=== PATIENT | female | born 2000 | race Caucasian/White ===

== ENCOUNTER 2024-11-08 04:40 | Emergency (ER) | payer BC ==
--- OUTSIDE RECORDS SUMMARY | 2024-11-08 04:43 | XMS REPORT | Continuity of Care Document ---
Author Name Unknown Address [address] [facility]. [address] [place] [address] [facility] thconnect Address [address] [facility]. [address] [place] [address] Care Team Providers Care [employer] Name Role Phone Tiffany Olsen Primary Care Physician Tiffany Olsen Attending Clinician Unavailable ROMAN CHANG Attending Clinician ROMAN Holt Attending Clinician Roman Holt MD Attending Clinician [phone] Doctor Unassigned, Aneth Attending Clinician U navailrocky 2, [facility] Attending Clinician Unavailable Payers Payer Name Policy Type Policy Number Effective Date Expirati on Date Source [facility] 6 [id number] [facility] Problems Condition Name Condition Details Condition Category Status Onset Date Resolution Date Last Treatment Date Treating Clinician Comments Source [id number] Body mass index [BMI] 32.0-32.9, adult Problem [facility] [id number] Other obesity due to excess calories Problem [facility] [id number] PCOS (polycysti c ovarian syndrome) Problem [facility] Allergies, Adverse Reactions, Alerts Allergy Name Allergy Type Status Severity Reaction(s) Onset Date Inactive Date Treating Clinician Comments Source Luna nAg ty to adverse reaction s Active Anaphylaxis 2023-11 0-14 00:00: 00 [facility] PLUM DRUG INGREDI Active Anaphylaxis 2023-11 00:00: 00 [facility] NO KNOWN ALLERGIE S Drug Class Active [facility] Social History Social Habit Start Date Stop Date Quantity Comments Source [facility] of [facility] Alcoholic beverage intake 2024-09-29 00:00:00 2024-09-29 00:00:00 Ex-drinker (finding) [facility] Tobacco use and exposure 2024-08-24 00:00:00 2024-08-24 00:00:00 Smokeless tobacco non-user [facility] History of Social function 2024-08-24 00:00:00 2024-08-24 00:00:00 [facility] Alcohol Comment 2024-08-24 00:00:00 2024-08-24 00:00:00 socially [facility] Sex assigned at 2001 00:00:00 2000 00:00:00 [facility] Smoking Status Start Date Stop Date Source Never smoked tobacco [facility] Medications Ordered Medication Name Filled Medication Name Start Date Stop Date Current Medication? 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 [facility] spironolact one 50 mg tablet 2023-11 00:00: 00 10-26 00:00 :00 No [id number] 50mg Take 1 tablet by mouth in the morning. [facility] miSOPROStoL 200 mcg tablet 2023-11 00:00: 00 09-29 00:00 :00 No [id number] Take one tablet the night before IUD insertion procedure and take one tablet the morning of the IUD insertion procedure. This is not for abortive treatment; patient will have IUD insertion. [facility] metFORMIN HCl ER 500 MG metFORMIN HCl ER 500 MG 05-22 00:00: 00 No 1{table t_with_ evening _meal} QD metFORMIN HCl ER 500 MG Tylenol 325 MG Tylenol 325 MG No 1{table t_as_ne eded} 6xD Tylenol 325 MG Vital Signs Vital Name Observation Time Observation Value Comments S ource Systolic blood pressure 2024-09-29 15:19:00 128 mm[Hg] [facility] Diastolic blood pressure 2024-09-29 15:19:00 88 mm[Hg] [facility] Heart rate 2024-09-29 15:19:00 92 /min [facility] Respiratory rate 2024-09-29 15:19:00 18 /min [facility] Body height 2024-09-29 15:19:00 165.1 cm [facility] Body weight 2024-09-29 15:19:00 88.905 kg [facility] BMI 2024-09-29 15:19:00 32.62 kg/m2 [facility] Systolic blood pressure 2024-09-28 19:47:00 118 mm[Hg] [facility] Diastolic blood pressure 2024-09-28 19:47:00 81 mm[Hg] [facility] Heart rate 2024-09-28 19:47:00 92 /min [facility] Body temperature 2024-09-28 19:47:00 36.72 [place] [facility] Respiratory rate 2024-09-28 19:47:00 18 /min [facility] Body height 2024-09-28 19:47:00 165.1 cm [facility] Body weight 2024-09-28 19:47:00 88.996 kg [facility] BMI 2024-09-28 19:47:00 32.65 kg/m2 [facility] Systolic blood pressure 2024-08-31 15:41:00 128 mm[Hg] [facility] Diastolic blood pressure 2024-08-31 15:41:00 85 mm[Hg] [facility] Heart rate 2024-08-31 15:41:00 108 /min [facility] Body temperature 2024-08-31 15:41:00 36.17 [place] [facility] Respiratory rate 2024-08-31 15:41:00 18 /min [facility] Body height 2024-08-31 15:41:00 165.1 cm [facility] Body weight 2024-08-31 15:41:00 88.996 kg [facility] BMI 2024-08-31 15:41:00 32.65 kg/m2 [facility] Systolic blood pressure 2024-08-24 18:30:00 124 mm[Hg] [place] [facility] Diastolic blood pressure 2024-08-24 18:30:00 81 mm[Hg] [facility] Heart rate 2024-08-24 18:30:00 104 /min [facility] Body temperature 2024-08-24 18:30:00 36.5 [place] [facility] Respiratory rate 2024-08-24 18:30:00 18 /min [facility] Body height 2024-08-24 18:30:00 165.1 cm [facility] Body weight 2024-08-24 18:30:00 91.173 kg [facility] BMI 2024-08-24 18:30:00 33.45 kg/m2 [facility] height 2024-05-22 10:20:00 65.00 [in_i] Com [facility] weight 2024-05-22 10:20:00 200.0 [lb_av] Co [facility] temperature 2024-05-22 10:20:00 97.9 [degF] Com [facility] bmi 2024-05-22 10:20:00 33.28 kg/m2 Comm on [facility] oximetry 2024-05-22 10:20:00 99 % Commo n [facility] respiratory rate 2024-05-22 10:20:00 16 /min [facility] blood pressure systolic 2024-05-22 10:20:00 137 mm[Hg] Common [facility] blood pressure diastolic 2024-05-22 10:20:00 82 mm[Hg] [facility] height 2023-11-22 10:40:00 65.00 [in_i] Com [facility] weight 2023-11-22 10:40:00 193.0 [lb_av] Co [facility] temperature 2023-11-22 10:40:00 98.1 [degF] Com [facility] bmi 2023-11-22 10:40:00 32.11 kg/m2 Comm on [facility] oximetry 2023-11-22 10:40:00 95 % Commo n [facility] respiratory rate 2023-11-22 10:40:00 15 /min [facility] blood pressure systolic 2023-11-22 10:40:00 121 mm[Hg] [facility] blood pressure diastolic 2023-11-22 10:40:00 74 mm[Hg] [facility] height 2023-05-22 09:40:00 65.00 [in_i] Com [facility] weight 2023-05-22 09:40:00 193.0 [lb_av] Co [facility] temperature 2023-05-22 09:40:00 97.7 [degF] Com mon [facility] bmi 2023-05-22 09:40:00 32.11 kg/m2 Comm on [facility] oximetry 2023-05-22 09:40:00 95 % Commo n [facility] respiratory rate 2023-05-22 09:40:00 15 /min Common [facility] blood pressure systolic 2023-05-22 09:40:00 120 mm[Hg] Common [facility] blood pressure diastolic 2023-05-22 09:40:00 74 mm[Hg] [facility] height 2023-05-08 09:00:00 65.00 [in_i] Com [facility] weight 2023-05-08 09:00:00 193.0 [lb_av] Co mmon [facility] temperature 2023-05-08 09:00:00 97.4 [degF] Com mon [facility] bmi 2023-05-08 09:00:00 32.11 kg/m2 Comm on [facility] oximetry 2023-05-08 09:00:00 95 % Commo n [facility] respiratory rate 2023-05-08 09:00:00 16 /min [facility] blood pressure systolic 2023-05-08 09:00:00 138 mm[Hg] [facility] blood pressure diastolic 2023-05-08 09:00:00 86 mm[Hg] [facility] Procedures Procedure Date / Time Performed Performing Clinicia n Source POCT TEST 2024-09-29 00:00:00 Christiano Roman [facility] POCT TEST 2024-08-31 00:00:00 Christiano [facility] Encounters Start Date/Time End Date/Time Encounter Type Admission Type Attending Clinicians Care Facility Care Department Encounter ID Source 2023-05-21 11:22:00 Outpatient Tiffany Olsen [facility] [id number] [facility] 2023-05-08 08:13:01 Outpatient Tiffany Olsen [facility] [id number] [facility] 2024-10-24 00:00:00 2024-10-26 15:23:54 [facility] [id number] 350.1.13.10 4.2.7.2.686 [id number] 134 [id number] [facility] 2024-09-29 09:30:00 2024-09-29 10:00:00 Office Visit Virk-Mahogany sLizetteRoman [facility] 1..840.114 350.1.13.10 4.2.7.2.686 [id number] 134 [id number] [facility] 2024-09-29 09:30:00 2024-09-29 09:30:00 Outpatient R VIRK-MAHOGANY S, ROMAN [id number] 2024-09-29 08:00:00 2024-09-29 08:00:00 Outpatient R VIRK-MAHOGANY S, ROMAN VIRK-MAHOGANY S, ROMAN [facility] [id number] [facility] 2024-09-28 14:00:00 2024-09-28 14:26:04 Outpatient R VIRK-MAHOGANY S, ROMAN [facility] [id number] [facility] 2024-09-28 14:00:00 2024-09-28 14:26:04 Office Visit Virk-Mahogany s, Roman [facility] [id number] 350.1.13.10 4.2.7.2.686 [id number] 134 [id number] [facility] 2024-08-25 00:00:00 2024-09-26 18:21:33 Patient Secure Msg Doctor Unassigned, Aneth Doctor Unassigned, Aneth [facility] 1.2.840.114 350.1.13.10 4.2.7.2.686 [id number] 134 [id number] [facility] 2024-09-15 00:00:00 2024-09-15 13:48:13 Refill Virk-Mahogany s, Roman [facility] 1.2.840.114 350.1.13.10 4.2.7.2.686 [id number] [facility] 2024-08-31 10:30:00 2024-08-31 11:00:00 Office Visit Virk-Mahogany s Roman [facility] 1.2.840.114 350.1.13.10 4.2.7.2.686 [id number] [facility] 2024-08-31 10:30:00 2024-08-31 10:30:00 Outpatient R VIRK-MAHOGANY S, ROMAN VIRK-MAHOGANY S, ROMAN [facility] [id number] [facility] 2024-08-24 14:00:00 2024-08-24 14:33:30 Outpatient R VIRK-MAHOGANY S, ROMAN VIRK-MAHOGANY S, ROMAN [facility] [id number] [facility] 2024-08-24 14:00:00 2024-08-24 14:15:00 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 2, Ad[facility] Lab Virk-Mahogany sLizetteRoman 2, Adc Lab [facility] 1.2.840.114 350.1.13.10 4.2.7.2.686 [id number] [facility] 2024-08-24 13:30:2024-08-24 13:54:32 Office Visit Roman Lindsay [facility] 1.2.840.114 350.1.13.10 4.2.7.2.686 [id number] [facility] 2024-05-22 00:00:00 2024-05-22 00:00:00 OFFICE VISIT ESTAB PT LEVEL 3 STLMLC STLMLC [id number] [facility] 2023-11-22 00:00:00 2023-11-22 00:00:00 (WELLNESS) Wellness Visit STLMLC STLMLC [id number] [facility] 2023-05-22 00:00:00 2023-05-22 00:00:00 OFFICE VISIT ESTAB PT LEVEL 3 STLMLC STLMLC [id number] [facility] 2023-05-08 00:00:00 2023-05-08 00:00:00 OFFICE VISIT NEW PT LEVEL 3 STLMLC STLMLC [id number] [facility] Results Test Description Test Time Test Comments Results Result Co mments Source [facility] [id number] 15:44:00* Test Item Value Reference Range Interpretation Comme nts POCT PREG (test code = 1605) Negative On board controls acceptable with C Line (test code = 3574) Yes POCT PREG LOT # (test code = 3575) POCT PREG TEST DATE ( test code = 3576) [facility]/AUTO [id number] 00:00:00* Test Item Value Reference Range Interpretation Comme nts NUCLEATED RBCS (test code = 13364-8) 0.0 /100 WBC'S See_Comment [Automated messa ge] The system which generated this result transmitted reference range: 0.0 /100 WBC'S. The reference range was not used to interpret this result as normal/abnormal. ABSOLUTE EOSINOPHILS (test code = 43089-2) 0.14 K/UL See_Comment [Automated messa ge] The system which generated this result transmitted reference range: 0.00-0.50 K/UL. The reference range was not used to interpret this result as normal/abnormal. ABSOLUTE LYMPHOCYTES (test code = 43824-9) 2.53 K/UL See_Comment [Automated messa ge] The system which generated this result transmitted reference range: 1.00-4.00 K/UL. The reference range was not used to interpret this result as normal/abnormal. ABSOLUTE MONOCYTES (test code = 11779-7) 0.51 K/UL See_Comment [Automated messa ge] The system which generated this result transmitted reference range: 0.2-3.8 K/UL. The reference range was not used to interpret this result as normal/abnormal. ABSOLUTE NEUTROPHILS (test code = 26412-6) 4.05 K/UL See_Comment [Automated messa ge] The system which generated this result transmitted reference range: 1.50-7.50 K/UL. The reference range was not used to interpret this result as normal/abnormal. BASOPHILS (test code = 53675-7) 0.5 % EOSINOPHILS (test code = 73165-4) 1.9 % HEMATOCRIT (test code = 23310-5) 41.5 % See_Comment [Automated messa ge] The system which generated this result transmitted reference range: 34.0-45.0 %. The reference range was not used to interpret this result as normal/abnormal. HEMOGLOBIN (test code = 718-7) 14.2 G/DL See_Comment [Automated messa ge] The system which generated this result transmitted reference range: 11.5-15.5 G/DL. The reference range was not used to interpret this result as normal/abnormal. LYMPHOCYTES (test code = 72492-9) 34.8 % MCH (test code = 98239-7) 31.8 PG See_Comment [Automated messa ge] The system which generated this result transmitted reference range: 25.0-33.0 PG. The reference range was not used to interpret this result as normal/abnormal. MCHC (test code = 61355-3) 34.2 G/DL See_Comment [Automated messa ge] The system which generated this result transmitted reference range: 31.0-36.0 G/DL. The reference range was not used to interpret this result as normal/abnormal. MCV (test code = 96253-8) 93.0 fL See_Comment [Automated messa ge] The system which generated this result transmitted reference range: 80.0-99.0 fL. The reference range was not used to interpret this result as normal/abnormal. MONOCYTES (test code = 37377-2) 7.0 % NEUTROPHILS (test code = 11065-5) 55.7 % PLATELET COUNT (test code = 56243-3) 264 K/UL See_Comment [Automated [employer]] The system which generated this result transmitted reference range: 130-400 K/UL. The reference range was not used to interpret this result as normal/abnormal. RBC (test code = 81913-9) 4.46 M/UL See_Comment [[employer]ated [employer]] The system which generated this result transmitted reference range: 3.80-5.40 M/UL. The reference range was not used to interpret this result as normal/abnormal. RDW (test code = 52851-8) 12.1 % See_Comment [[employer]ated [employer]] The system which generated this result transmitted reference range: 11.5-15.0 %. The reference range was not used to interpret this result as normal/abnormal. WBC (test code = 15233-4) 7.3 K/UL See_Comment [[employer]ated [employer]] The system which generated this result transmitted reference range: 3.5-11.0 K/UL. The reference range was not used to interpret this result as normal/abnormal.
[2024-11-08] MEDS ORDERED: ONDANSETRON 4 MG/2 ML VIAL ONE (05:50)
[2024-11-08] MEDS ORDERED: MORPHINE 4 MG/ML SYR ONE (05:50)
[2024-11-08] MEDS ORDERED: NA CHLORIDE 0.9% 1,000 ML ONE (05:50)
[2024-11-08 06:06] LABS: Specific Gravity 1.026 (1.005-1.030)
[2024-11-08 06:07] LABS: Specific Gravity 1.026 (1.005-1.030); Sqamous Epithelial <5 /HPF (None Seen); Transitional Epithelial <5 /HPF (None Seen); Urine Bacteria None Seen /HPF (<20); Urine Bilirubin NEGATIVE (Negative); Urine Blood 1+ (Negative); Urine Clarity Clear (Clear); Urine Color Light-Yellow (Yellow); Urine Culture Reflex Order NOT NEEDED; Urine Glucose NEGATIVE (Negative); Urine Ketones NEGATIVE (Negative); Urine Microscopic Reflex YN ORDER UMIC; Urine Mucus Slight /HPF (None Seen); Urine Nitrite NEGATIVE (Negative); Urine Protein NEGATIVE (Negative); Urine Urobilinogen Normal (Normal); Urine WBC <5 /HPF (<5)
[2024-11-08 06:10] LABS: Absolute Eosinophils 0.2 K/uL (0-0.5); Absolute Lymphocytes (CBC) 3.2 K/uL (0.7-4.9); Absolute Monocytes 0.7 K/uL (0.1-1.3); Absolute Neutrophil 4.7 K/uL (1.8-8.0); Basophils % 0.5 % (0-1.3); Eosinophils % 2.2 % (0-4.4); Hematocrit 36.4 % (36.0-45.0); Hemoglobin 12.2 g/dL (12.0-15.0); Lymphocytes % 36.5 % (15.3-44.8); MCH 31.1 pg (27.0-35.0); MCHC 33.5 g/dL (32.0-36.0); MPV 9.9 fL (7.6-11.3); Monocytes % 7.5 % (3.3-12.3); Neutrophils % 53.3 % (41.7-73.7); Nucleated Red Blood Cells % 0.1 % (0-0); Platelets 248 thou/uL (152-406); RBC Red Blood Cell Count 3.92 M/uL (3.86-4.86); Red Cell Distribution Width 13.3 % (12.1-15.2)
[2024-11-08 06:29] LABS: Albumin 3.8 g/dL (3.4-5.0); Albumin/Globulin Ratio 1.1 (1.1-1.8); Anion Gap 11.4 mEq/L (5.0-15.0); Bilirubin Total 0.4 mg/dL (0.2-1.0); Globulin 3.5 g/dL (2.3-3.5); Potassium 3.4 mEq/L (3.5-5.1); Protein, Total 7.3 g/dL (6.4-8.2)
--- NOTE | 2024-11-08 07:01 | RAD REPORT ---
EXAMINATION: CT ABDOMEN AND PELVIS WITH CONTRAST CLINICAL INDICATION: Female, 23 years old.r sided abd pain TECHNIQUE: CT abdomen and pelvis was performed, after the administration of IV contrast, as per [facility]. Axial, sagittal and coronal reconstructions were obtained. One or more of the following dose reduction techniques were used: Automated exposure control, adjustment of the mA and/o r kV according to patient size, and/or iterative reconstruction. Unless otherwise specified, incidental findings do not require dedicated imaging follow-up. [id number]. COMPARISON: No prior exam. LOWER CHEST: No acute process identified.No significant pericardial effusion. Mild circumferential th ickening of the distal esophagus which could reflect esophagitis. UPPER GI: No significant abnormality. LIVER: Hepatic steatosis, but otherwise unremarkable. GALLBLADDER/BILE DUCTS: No biliary ductal dilatation.? PANCREAS: No mass, ductal dilation, or dustin-pancreatic fluid. SPLEEN: Unremarkable. ADRENALS: No adrenal masses. KIDNEYS AND URETERS: Normal size and contour. No hydronephrosis.Low density and/or too small to candy cterize renal lesions which are statistically benign. ABDOMINAL AORTA AND OTHER VESSELS: Normal caliber aorta and IVC. PERITONEUM: No abnormal free fluid. No free air. LYMPH NODES: No pathologic lymphadenopathy. ABDOMINAL WALL: No significant abnormality. SMALL BOWEL/COLON: Small bowel has normal course and caliber. No colonic wall thickening or pericolon ic inflammatory changes.Normal appendix. Moderate colonic stool. URINARY BLADDER: Underdistended but grossly unremarkable. REPRODUCTIVE ORGANS: No pathologic process. MUSCULOSKELETAL: No acute or suspicious osseous abnormality. ADDITIONAL FINDINGS: None. IMPRESSION: No acute or significant abnormalities seen in the abdomen or pelvis. Normal appendix. Possible mild c onstipation.
--- NOTE | 2024-11-08 07:07 | EDPHYS ---
Physician Documentation [facility] Name: Daxa Singleton Age: 23 yrs Sex: Female : 2000 Arrival Date: 11/08/2024 Time: 04:40 Bed 5 Private MD: ED Physician Paulo Zimmerman HPI: 11/08 05:00 This 23 yrs old Female presents to ER via Unassigned with complaints of ec2 Abdominal Pain. 05:00 Patient arrives today for right-sided abdominal pain. Reports intermittent symptoms ec2 ongoing for the last several weeks however worsened symptoms tonight. Reports associated nausea. No vomiting. No diarrhea. No urinary complaint. Patient reports otherwise no cough and cold symptoms. No previous abdominal surgeries.. 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 - Infectious Disease History:: Denies. - Social history:: Smoking status: Patient denies any tobacco usage or history of. ROS: 05:00 Constitutional: as per hpi ec2 Exam: 05:00 Constitutional: GEN: NAD Head: atraumatic Eyes: EOMI Ears: External ears are ec2 normal. CV: Tachycardia LUNGS: no respiratory distress ABD: non-distended, soft, tender in the right lower quadrant, no guarding, not rigid SKIN: no evidence of rashes MSK: no evidence of trauma Vital Signs: 05:28 BP 142 / 98; Pulse 114; Resp 17; Temp 98.6; Pulse Ox 100% ; Weight 87.54 kg; Height 5 vc1 ft. 5 in. ; Pain 4/10; 06:11 BP 131 / 84; Pulse 95; Resp 16; Pulse Ox 97% on R/A; dd2 06:42 BP 130 / 76; Pulse 92 MON; Resp 16; Pulse Ox 97% on R/A; dd2 05:28 Body Mass Index 32.12 (87.54 kg, 165.1 cm) vc1 05:28 Pain Scale: Adult vc1 [place] Coma Score: 05:45 Eye Response: spontaneous(4). Motor Response: obeys commands(6). Verbal Response: dd2 oriented(5). Total: 15. MDM: 05:00 Medical Screening Exam initiated ec2 05:00 Data reviewed: vital signs, nurses notes. ED course: Patient arrives today for ec2 right-sided abdominal pain. Examination yields abdominal findings as above. Will obtain lab work, CT imaging. . 07:05 ED course: CT abdomen pelvis is nonacute. On reassessment patient is well-appearing no ec2 acute distress. Will discharge home. Return precautions given.. 11/08 05:00 Order name: CBC with Diff; Complete Time: 06:31 ec2 11/08 05:00 Order name: CMP; Complete Time: 06:31 ec2 11/08 05:00 Order name: Lipase; Complete Time: 06:31 ec2 11/08 05:00 Order name: Test, Urine; Complete Time: 06:08 ec2 11/08 05:00 Order name: Urinalysis w/ reflexes; Complete Time: 06:08 ec2 11/08 05:00 Order name: CT Abd/Pelvis - IV Contrast Only; Complete Time: 07:04 ec2 11/08 05:00 Order name: IV Saline Lock; Complete Time: 05:19 ec2 11/08 05:00 Order name: Labs collected and sent; Complete Time: 05:19 ec2 11/08 05:41 Order name: Misc. Order: recollect all labs; Complete Time: 05:51 vk Administered Medications: 05:56 Drug: NS 0.9% IV 1000 ml IV at 1 bolus Per protocol; to be given as a bolus over 60 dd2 minutes Route: IV; Rate: 1 bolus; Site: left antecubital; 06:11 Follow up: Response: No adverse reaction dd2 07:16 Follow up: IV Status: Completed infusion iw 05:57 Drug: Ondansetron IVP 4 mg IVP once; over 2 minutes Route: IVP; Site: left antecubital; dd2 06:12 Follow up: Response: No adverse reaction dd2 05:57 Drug: morphine IVP or IV 4 mg IVP once over 4 mins Route: IVP; Infused Over: 4 mins; dd2 Site: left antecubital; 06:12 Follow up: Response: No adverse reaction dd2 Disposition Summary: 11/08/24 07:07 Discharge Ordered Notes: Location: Home ec2 Condition: Stable ec2 Diagnosis - Lower abdominal pain, unspecified ec2 Followup: ec2 - With: Private Physician - When: - Reason: Re-evaluation by your physician Discharge Instructions: - Discharge Summary Sheet ec2 - Abdominal Pain, Adult ec2 Forms: - Work release form eb - Medication Reconciliation Form ec2 - Antibiotic Education ec2 - Prescription Opioid Use ec2 - Patient Portal Instructions ec2 - Leadership Thank You Letter ec2 Prescriptions: - Zofran 4 mg Oral Tablet - take 1 tablet ORAL route every 12 hours As needed; 20 tablet; Refills: 0, ec2 Product Selection Permitted - methocarbamol 500 mg Oral tablet - take 1 tablet ORAL route 4 times per day; 20 tablet; Refills: 0, Product ec2 Selection Permitted Signatures: Dispatcher [employer] EDMS Kelly Howell RN RN vc1 Paulo Zimmerman MD MD ec2 Laquita Redmond DIANA, RN RN dd2 Flores Gusman RN iw Corrections: (The following items were deleted from the chart) 05:00 05:00 CBC+H.LAB.BRZ ordered. EDMS EDMS 05:00 05:00 COMPREHENSIVE METABOLIC PANEL+C.LAB.BRZ ordered. EDMS EDMS 05:00 05:00 LIPASE+C.LAB.BRZ ordered. EDMS EDMS 05:00 05:00 Test, Urine+UC.LAB.BRZ ordered. EDMS EDMS 05:00 05:00 Urinalysis+U.LAB.BRZ ordered. EDMS EDMS 05:00 05:00 Abdomen Pelvis W Con+CT.RAD.BRZ ordered. EDMS EDMS
--- NOTE | 2024-11-08 07:07 | ER ---
Nurse's Notes [facility] Name: Daxa Singleton Age: 23 yrs Sex: Female : 2000 Arrival Date: 11/08/2024 Time: 04:40 Bed 5 Private MD: Diagnosis: Lower abdominal pain, unspecified Presentation: 11/08 05:28 Chief complaint: Patient states: right lower abdominal pain, nausea and diarrhea for a vc1 few weeks. Coronavirus screen: Client denies travel out of the [place] in the last 14 days. At this time, the client does not indicate any symptoms associated with coronavirus-19. Ebola Screen: Patient negative for fever greater than or equal to 101.5 degrees Fahrenheit, and additional compatible Ebola Virus Disease symptoms Patient denies exposure to infectious person. Patient denies travel to an Ebola-affected area in the 21 days before illness onset. No symptoms or risks identified at this time. Initial Sepsis Screen: Does the patient meet any 2 criteria? No. Patient's initial sepsis screen is negative. Does the patient have a suspected source of infection? No. Patient's initial sepsis screen is negative. Risk Assessment: Do you want to hurt yourself or someone else? Patient reports no desire to harm self or others. Onset of symptoms is unknown. 05:28 Method Of Arrival: Ambulatory vc1 05:28 Acuity: LYDIA 3 vc1 Triage Assessment: 05:28 General: Appears in no apparent distress. uncomfortable, ill, obese, well developed, vc1 well nourished, Behavior is calm, cooperative, appropriate for age. Pain: Complains of pain in right lower quadrant Pain does not radiate. Pain currently is 4 out of 10 on a pain scale. Quality of pain is described as stabbing, Pain began few weeks. EENT: No deficits noted. No signs and/or symptoms were reported regarding the EENT system. Neuro: Level of Consciousness is awake, alert, obeys commands, Oriented to person, place, time, situation, Appropriate for age. Cardiovascular: Capillary refill < 3 seconds Patient's skin is warm and dry. Respiratory: Airway is patent Respiratory effort is even, unlabored, Respiratory pattern is regular, symmetrical. GI: Abdomen is round non-distended, Reports lower abdominal pain, diarrhea, nausea, Patient currently denies vomiting. : No deficits noted. No signs and/or symptoms were reported regarding the genitourinary system. Derm: Skin is intact, is healthy with good turgor, Skin is dry, Skin is normal, Skin temperature is warm. Musculoskeletal: Circulation, motion, and sensation intact. Range of motion: intact in all extremities. DATABASE CONSULTANT: 05:28 LMP N/A - Irregular menses, Not vc1 Historical: - Allergies: : plums; vc1 05: sand flies; vc1 - PMHx: : PCOS; vc1 - PSHx: :28 None; vc1 - Immunization history:: Client reports receiving the 2nd dose of the Covid vaccine, Flu vaccine is not up to date. - Infectious Disease History:: Denies. - Social history:: Smoking status: Patient denies any tobacco usage or history of. Screenin:45 [facility] ED Fall Risk Assessment (Adult) History of falling in the last 3 months, vc1 including since admission No falls in past 3 months (0 pts) Confusion or Disorientation No (0 pts) Intoxicated or Sedated No (0 pts) Impaired Gait No (0 pts) Mobility Assist Device Used No (0 pt) Altered Elimination No (0 pt) Score/Fall Risk Level 0 - 2 = Low Risk Oriented to surroundings, Maintained a safe environment, Educated pt \T\ family on fall prevention, incl call for assistance when getting out of bed. Abuse screen: Denies threats or abuse. Nutritional screening: No deficits noted. Tuberculosis screening: No symptoms or risk factors identified. Assessment: :45 General: Appears in no apparent distress. uncomfortable, Behavior is calm, cooperative, dd2 appropriate for age. Pain: Complains of pain in right lower quadrant Pain does not radiate. Pain currently is 7 out of 10 on a pain scale. Neuro: Luciano Agitation-Sedation Scale (RASS): 0 - Alert and Calm Level of Consciousness is awake, alert, obeys commands, Oriented to person, place, time, situation, Appropriate for age. Cardiovascular: Denies chest pain, Patient's skin is warm and dry. Respiratory: Airway is patent Respiratory effort is even, unlabored, Respiratory pattern is regular, symmetrical, Breath sounds are clear bilaterally. GI: Abdomen is non-distended, Bowel sounds present X 4 quads. Abdomen is tender to palpation in right lower quadrant Reports lower abdominal pain, diarrhea, nausea. : No deficits noted. No signs and/or symptoms were reported regarding the genitourinary system. EENT: No deficits noted. No signs and/or symptoms were reported regarding the EENT system. Derm: No deficits noted. No signs and/or symptoms reported regarding the dermatologic system. Musculoskeletal: No deficits noted. No signs and/or symptoms reported regarding the musculoskeletal system. Circulation, motion, and sensation intact. Range of motion: intact in all extremities. Vital Signs: 05:28 BP 142 / 98; Pulse 114; Resp 17; Temp 98.6; Pulse Ox 100% ; Weight 87.54 kg; Height 5 vc1 ft. 5 in. ; Pain 4/10; 06:11 BP 131 / 84; Pulse 95; Resp 16; Pulse Ox 97% on R/A; dd2 06:42 BP 130 / 76; Pulse 92 MON; Resp 16; Pulse Ox 97% on R/A; dd2 05:28 Body Mass Index 32.12 (87.54 kg, 165.1 cm) vc1 05:28 Pain Scale: Adult vc1 [place] Coma Score: 05:45 Eye Response: spontaneous(4). Motor Response: obeys commands(6). Verbal Response: dd2 oriented(5). Total: 15. ED Course: 04:42 Patient arrived in ED. [id number] 04:44 Paulo Zimmerman MD is Attending Physician. ec2 05:19 Inserted saline lock: 22 gauge in left antecubital area, using aseptic technique. Blood af3 collected. Flushed with 10 mL NS. 05:28 Arm band placed on right wrist. vc1 05:43 Triage completed. vc1 05:45 No provider procedures requiring assistance completed. Patient maintains SpO2 dd2 saturation greater than 95% on room air. 05:45 Patient has correct armband on for positive identification. Bed in low position. Call dd2 light in reach. Side rails up X 1. Client placed on continuous cardiac and pulse oximetry monitoring. NIBP monitoring applied. Door closed. Noise minimized. Warm blanket given. Pillow given. Verbal reassurance given. 05:56 NERISSA MARCIAL RN is Primary Nurse. dd2 06:52 CT Abd/Pelvis - IV Contrast Only In Process Unspecified. EDMS 06:58 Report given to Shabbir and Flores, RN's. bm8 07:15 IV discontinued, intact, bleeding controlled, No redness/swelling at site. Pressure iw dressing applied. 07:16 Provided Education on: d/c instructions . iw Administered Medications: 05:56 Drug: NS 0.9% IV 1000 ml IV at 1 bolus Per protocol; to be given as a bolus over 60 dd2 minutes Route: IV; Rate: 1 bolus; Site: left antecubital; 06:11 Follow up: Response: No adverse reaction dd2 07:16 Follow up: IV Status: Completed infusion iw 05:57 Drug: Ondansetron IVP 4 mg IVP once; over 2 minutes Route: IVP; Site: left antecubital; dd2 06:12 Follow up: Response: No adverse reaction dd2 05:57 Drug: morphine IVP or IV 4 mg IVP once over 4 mins Route: IVP; Infused Over: 4 mins; dd2 Site: left antecubital; 06:12 Follow up: Response: No adverse reaction dd2 Medication: 05:45 VIS not applicable for this client. dd2 Outcome: 07:07 Discharge ordered by . carli 07:15 Discharged to home ambulatory, iw 07:15 Condition: good 07:15 Discharge instructions given to patient, Instructed on discharge instructions, follow up and referral plans. medication usage, Demonstrated understanding of instructions, follow-up care, medications, Prescriptions given X 2, 07:16 Patient left the ED. iw Signatures: Dispatcher [employer] Flores Velasquez RN RN iw Simona Begum [id number] Kelly Howell RN RN vc1 Paulo Zimmerman MD MD ec2 Trevor Mancia RN RN [id number] Charity Ames DIANA, RN RN dd2
[2024-11-08 07:21] VITALS: TEMP 98.6
[2024-11-08 07:23] VITALS: O2SAT 97
[2024-11-08 07:25] VITALS: BP 130/76
== END 2024-11-08 07:16 | disposition home or self-care (01) ==
LOC: ER 04:40
DX: R10.31 Right lower quadrant pain (principal)
CPT/HCPCS: 96361; 85025; 81001; 36415; 81025; 83690; 80053; 74177; 96375; 96374; 99284; Q9967; J2405; J7030